=== PATIENT | male | born 1990 | race Caucasian/White ===

== ENCOUNTER 2017-09-03 23:20 | Emergency (ER) | payer OTHER ==
[2017-09-03 23:29] VITALS: BP 146/89; PULSE 85; TEMP 98.5; BMI 25.8
--- NOTE | 2017-09-03 23:46 | PDOC ---
Attending Attestation - HPI HPI: 09/04/17 01:54 The patient is a 26 year old male with a past medical history of seasonal allergies who presents to the emergency department for evaluation of urticaria. The patient reports diffuse rash throughout the body. He reports the rash initially started as an erythematous region on his forearm on Tuesday which disappeared and then spread to the rest of his body. He reports associated itchiness and burning. Pt notes a large lesion his back. Denies previous history of rash. Denies changes in detergent. The patient reports taking Benadryl on with no alleviation to the aforementioned symptoms. The patient denies chest pain, shortness of breath, headache, and dizziness. Denies fever, chills, nausea, vomiting, diarrhea, and constipation. Denies dysuria, hematuria, and urinary frequency/urgency. Allergies: NKDA Social History: No reported alcohol, cigarette, or drug use. - Physicial Exam PE: GENERAL: Afebrile. Awake, alert, and fully oriented, in no acute distress HEAD: No signs of trauma EYES: PERRLA, EOMI, sclera anicteric, conjunctiva clear ENT: Auricles normal inspection, hearing grossly normal, nares patent, oropharynx clear without exudates. Moist mucosa NECK: Normal ROM, supple, no lymphadenopathy, JVD, or masses LUNGS: Breath sounds equal, clear to auscultation bilaterally. No wheezes, and no crackles HEART: Regular rate and rhythm, normal S1 and S2, no murmurs, rubs or gallops ABDOMEN: Soft, nontender, normoactive bowel sounds. No guarding, no rebound. No masses EXTREMITIES: Normal range of motion, no edema. No clubbing or cyanosis. No cords, erythema, or tenderness NEUROLOGICAL: Cranial nerves II through XII grossly intact. Normal speech, normal gait SKIN: (+)Patches of Urticaria on his arms, trunk, back that come and go, none on face or legs.Warm, Dry, normal turgor. <Jessee Underwood - Last Filed: 09/04/17 02:51> - Resident Resident Name: Dariel Alberto - ED Attending Attestation I have performed the following: I have examined & evaluated the patient, The case was reviewed & discussed with the resident, I agree w/resident's findings & plan - Medical Decision Making 09/04/17 20:14 Pt has a migratory hives rash. He states that the rash started 3 days ago, and has been on and off. Not associated with meals. Pt eats 1 to 2 meals daily and routinely doesnt eat until later in the day and rash has been coming with no food intake. Not related to bathing products either. Pt is on no meds. Only benadryl now with the hives. Pt had a similar episode 3 yrs ago and at that time, his allergy panel was negative for everything. 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 He will be treated with steroids and benadryl in the ER. Home with zantac, zyrtec, and prednisone. Follow with [facility]. <Sonia Jimenez - Last Filed: 09/04/17 20:18> Attestations - Attestations Documentation prepared by Jessee Underwood, acting as medical/surgery registered nurse for Sonia Jimenze MD. <Jessee Underwood - Last Filed: 09/04/17 02:51>
--- NOTE | 2017-09-04 00:29 | PDOC ---
History of Present Illness - General History Source: Patient Exam Limitations: No Limitations - History of Present Illness Initial Comments: 09/04/17 00:28 Mr. Jose R Daniels is a 26 yo M with a hx of seasonal allergies presents to the emergency department with a diffuse rash that began Tuesday. He states at 2pm on Tuesday he developed a right forarm rash that was erythematous raised lesion that lasted for 2 hours with itchiness and burning. It spread to the rest of his body with sparing of the groin region. 09/04/17 00:51 <Dariel Alberto - Last Filed: 09/04/17 00:51> <Sonia Jimenez - Last Filed: 09/04/17 02:28> - General Chief Complaint: Rash Stated Complaint: RASH Time Seen by Provider: 09/03/17 23:31 Past History - Suicide/Smoking/Psychosocial Hx Smoking History: Never smoked Have you smoked in the past 12 months: No Information on smoking cessation initiated: No Hx Alcohol Use: No Drug/Substance Use Hx: No <Dariel Alberto - Last Filed: 09/04/17 00:51> <Sonia Jimenez - Last Filed: 09/04/17 02:28> - Past Medical History Allergies/Adverse Reactions: Allergies Allergy/AdvReac Type Severity Reaction Status Date / Time No Known Allergies Allergy Unverified 09/03/17 23:28 *Physical Exam - Vital Signs Last Vital Signs Temp Pulse Resp BP Pulse Ox 98.5 F 85 20 146/89 99 09/03/17 23:28 09/03/17 23:28 09/03/17 23:28 09/03/17 23:28 09/03/17 23:28 <Dariel Alberto - Last Filed: 09/04/17 00:51> - Vital Signs Last Vital Signs Temp Pulse Resp BP Pulse Ox 98.5 F 85 20 146/89 99 09/03/17 23:28 09/03/17 23:28 09/03/17 23:28 09/03/17 23:28 09/03/17 23:28 <Sonia Jimenez - Last Filed: 09/04/17 02:28> ED Treatment Course - Medications Given in the ED: ED Medications Discontinued Medications Generic Name Dose Route Start Last Admin Trade Name Pat PRN Reason Stop Dose Admin Dexamethasone 10 mg 09/04/17 01:29 09/04/17 01:39 Decadron Liquid - PO 09/04/17 01:30 10 mg ONCE ONE Administration Diphenhydramine HCl 50 mg 09/04/17 01:30 09/04/17 01:39 Benadryl - PO 09/04/17 01:31 50 mg ONCE ONE Administration <Sonia Jimenez - Last Filed: 09/04/17 02:28> *DC/Admit/Observation/Transfer <Dariel Alberto - Last Filed: 09/04/17 00:51> - Discharge Dispostion Decision to Admit order: No <Sonia Jimenez - Last Filed: 09/04/17 02:28> Diagnosis at time of Disposition: Idiopathic urticaria - Discharge Dispostion Disposition: HOME Condition at time of disposition: Stable - Prescriptions Prescriptions: Cetirizine HCl [Zyrtec -] 10 mg PO DAILY #30 tablet EPINEPHrine (EPI-PEN 0.3MG) [Epipen 0.3MG -] 0.3 mg IM ASDIR #1 pens Ranitidine HCl [Zantac] 150 mg PO BID #60 tablet - Referrals Referrals: Emigdio Schofield MD [Staff Physician] - - Patient Instructions Printed Discharge Instructions: DI for Hives
[2017-09-04] MEDS ORDERED: DEXAMETHASONE LIQUID 0.5 MG/5 ML 240 ML BULK BOTTLE PO ONE (01:29)
[2017-09-04] MEDS ORDERED: diphenhydrAMINE HCL 25 MG CAPSULE (FP) PO ONE ×2 (01:30→01:37)
[2017-09-04] MEDS ORDERED: DEXAMETHASONE SOD PHOSPHATE 10 MG/1 ML VIAL ONE (01:37)
[2017-09-04] MEDS ORDERED: RANITIDINE HCL 150 MG TABLET (FP) PO ONE (02:25)
[2017-09-04] MEDS ORDERED: RANITIDINE HCL 150 MG TABLET (FP) ONE (02:34)
== END 2017-09-04 02:39 | disposition home or self-care (01) ==
LOC: JER 23:20
DX: L50.1 Idiopathic urticaria (principal)
CPT/HCPCS: 99282-25

== ENCOUNTER 2022-06-29 15:59 | Emergency (ER) | payer BC, OTHER ==
[2022-06-29 16:06] VITALS: BP 151/95; PULSE 101; RESP 20; TEMP 98.7; BMI 38.7
[2022-06-29] MEDS ORDERED: IBUPROFEN 400 MG TABLET (FP) PO ONE ×2 (16:31→16:46)
== END 2022-06-29 18:22 | disposition home or self-care (01) ==
LOC: JERFT 15:59
DX: R07.0 Pain in throat (principal); R50.9 Fever, unspecified; R06.7 Sneezing; M79.10 Myalgia, unspecified site; R05.9 Cough, unspecified; R43.9 Unspecified disturbances of smell and taste; R00.0 Tachycardia, unspecified; J10.1 Influenza due to other identified influenza virus with other respiratory manifestations; Z20.822 Contact with and (suspected) exposure to COVID-19
CPT/HCPCS: 0241U-QW; 99283-25